=== PATIENT | male | born 1995 ===

== ENCOUNTER 2018-08-18 20:11 | Emergency (ER) | payer OTHER ==
--- NOTE | 2018-08-18 20:24 | ER Report ---
History and Physical Time Seen By MD: 20:24 Hx. of Stated Complaint: HAS SOMETHING IN RIGHT EYE FOR 6 HOURS. TRIED FLUSHING IT OUT NOTHING HAS HELPED. DOES NOT HAVE ANY LOSS OF VISION IN THE EYE HPI/ROS CHIEF COMPLAINT: possible foreign body in eye HISTORY OF PRESENT ILLNESS: This is a 23 year old male. He felt like something got into his right eye while at the grocery store about 6 hours ago. Irritation since then. Attempting to rinse the eye, but not helpful. Normal vision. No headache. Allergies: Coded Allergies: No Known Drug Allergies (Unverified , 08/18/18) Reviewed Nurses Notes: Yes Hx Substance Use Disorder: No Constitutional Vital Sign - Last 24 Hours 08/18/18 08/18/18 20:14 21:44 Temp 98.5 Pulse 76 88 Resp 16 16 B/P (MAP) 125/78 132/88 (103) Pulse Ox 92 96 O2 Delivery Room Air Room Air Physical Exam General Appearance: Alert, no distress. Used Proparacaine 0.5% drops to numb the right eye. Slit lamp exam: Normal anterior chamber. Normal lids and margins. Do not see a foreign body. No cloudiness in the vitreous. Normal-appearing iris and sclera. Eyes: Pupils equal, round and reactive to light. No pallor. Right eye with moderate injection. There is no discharge. Examination, including under the upper lid, reveals no foreign body. Fluorescein exam reveals no uptake. Skin: Periorbital skin is not inflamed. DIFFERENTIAL DIAGNOSIS: After history and physical exam differential diagnosis was considered for a red and irritated eye, uncertain etiology, possible irritation from foreign body that is now gone, no corneal abrasion. Medical Decision Making ED Course/Re-evaluation ED Course We'll start TobraDex drops. did have a Matt's lens with a liter of normal saline to flush the eye, numbed again with the proparacaine drops. Rec ommended follow-up for full eye exam with an repair specialist tomorrow. Decision to Disposition Date: Aug 18, 2018 Decision to Disposition Time: 21:36 Depart Departure Latest Vital Signs Vital Signs Date Time Temp Pulse Resp B/P (MAP) Pulse Ox O2 Delivery O2 Flow Rate FiO2 08/18/18 21:44 88 16 132/88 (103) 96 Room Air 08/18/18 20:14 98.5 Impression: Primary Impression: Eye irritation Condition: Improved Disposition: HOME OR SELF-CARE Additional Instructions: We did not see a foreign body in your eye tonight. There is no abrasion on the surface. We did not see anything dangerous at this time. Use TobraDex eye drops, 1-2 drops twice a day. Call and arrange an eye exam tomorrow with an repair specialist for a full exam. MONTANA HINOJOSA MD Aug 18, 2018 20:24
[2018-08-18] MEDS ORDERED: PROPARACAINE 0.5% OP 15ML BTL OU ONE (20:25)
[2018-08-18] MEDS ORDERED: FLUORESCEIN SOD 1 MG 1 EA STRP OU ONE (20:25)
[2018-08-18] MEDS ORDERED: TOBRAMYCIN/DEX OP SUSP 2.5 ML OU ONE (21:00)
[2018-08-18] MEDS ORDERED: NS(*) 0.9% 1000 ML BAG 1,000 ML IR ONE (21:00)
[2018-08-18 21:44] VITALS: BP 132/88
== END 2018-08-18 21:45 | disposition home or self-care (01) ==
LOC: ER 20:21
DX: H57.11 Ocular pain, right eye (principal)
CPT/HCPCS: 99283; J7030